=== PATIENT | female | born 1955 | race American Indian/Alaskan Native ===

== ENCOUNTER 2020-08-19 06:19 | Day surgery (SDC) | payer BC ==
[2020-08-19] MEDS ORDERED: ASPIRIN EC 325 MG TAB PO ONE ×2 (07:06→07:34)
[2020-08-19 07:23] LABS: Basophils % (Auto) 0.3 % (0.0-1.8); Eosinophils % (Auto) 0.1 % (0.0-4.3); Lymphocytes # (Auto) 1.3 K/mm3 (1.2-5.4); Lymphocytes % (Auto) 11.9 % (13.4-35.0); Mean Corpuscular HGB Conc 37 % (30-34); Mean Corpuscular Volume 88 fl (79-97); Monocytes # (Auto) 0.4 K/mm3 (0.0-0.8); Platelet Count 271 K/mm3 (140-440); Red Blood Count 4.73 M/mm3 (3.65-5.03); Red Cell Distribution Width 13.6 % (13.2-15.2)
[2020-08-19] MEDS ORDERED: HEPARIN/NS 5000 UNIT/500ML 1,000 ML IR ONE (07:29)
[2020-08-19] MEDS ORDERED: VERAPAMIL 5 MG/2 ML INJ ONE (07:30)
[2020-08-19] MEDS ORDERED: HEPARIN 10,000 UNITS/10 ML VIAL ONE (07:30)
[2020-08-19] MEDS ORDERED: LIDOCAINE (2%) 20 MG/1 ML VIAL 20 ML MDV INFILTRATI ONE (07:30)
[2020-08-19] MEDS ORDERED: NITROGLYCERIN SYRINGE 3 ML ONE (07:30)
[2020-08-19 07:33] LABS: INR 0.98 (0.87-1.13)
[2020-08-19 07:40] LABS: Hematocrit 41.4 % (30.3-42.9); Hemoglobin 15.3 gm/dl (10.1-14.3)
[2020-08-19 08:04] LABS: Blood Urea Nitrogen 19 mg/dL (7-17); Hemolysis Index 3
[2020-08-19 08:06] LABS: BUN/Creatinine Ratio 27
[2020-08-19] MEDS ORDERED: MIDAZOLAM 2 MG/2 ML INJ ONE (08:14)
[2020-08-19] MEDS ORDERED: fentaNYL 100 MCG/2 ML INJ ONE (08:14)
[2020-08-19] MEDS: SODIUM CHLORIDE 0.9% 500 ML 500 ML IV SCH ×2 (08:18→08:39)
--- NOTE | 2020-08-19 09:16 | Cardiac Catherization Report ---
REFERRING PHYSICIAN: Dr. Lara. INDICATION FOR PROCEDURE: The patient is a pleasant 65-year-old -Spanish female with multiple risk factors, seen in the office having chest pain, shortness of breath, found to have abnormal stress test, referred for left heart catheterization. Risks, benefits, potential alternatives explained at length prior to obtaining informed consent. PROCEDURE IN DETAIL: The patient was brought to the labor custodian in a postoperative state, prepped and draped in sterile fashion. Crow's test in right hand was normal. A 2 mL of 2% lidocaine used to anesthetize the right wrist. A standard 6-Wolof hydrophilic sheath used to cannulate the right radial artery via modified Seldinger technique. All exchanges were performed to exchange a J-tip guidewire. JL3.5 catheter was used to engage the left main. No dampening noted. Cineangiography performed in all projections. Next, catheter exchanged for JR4 catheter was used to cross the aortic valve under fluoroscopic guidance. Left ventriculography performed in 30 UPTON and 30 KYRGYZ projections via hand injections, catheter flushed. Manual pullback performed with continuous pressure monitoring. Catheter was used to engage the right coronary. No dampening or ventricularization. Cineangiography performed in all projections. Next, catheter removed from the body of wire, sheath removed. Manual pressure used to achieve hemostasis. I directly supervised the administration of moderate sedation from 8:30 a.m. to 8:50 a.m. with fentanyl and Versed. INTERPRETATION: The patient remained in normal sinus rhythm throughout the procedure. Aortic pressure is 140/70, LV pressure is 140. LVEDP of 28 mmHg. Left ventriculography revealed normal systolic performance with estimated ejection fraction of 55-60%. No evidence of aortic stenosis. CORONARY ANATOMY: This is a right dominant system. Left main is short, bifurcates in left anterior descending and left circumflex. No disease in left main. Left circumflex, moderate sized vessel, no significant disease, KELLIE 3 flow. LAD is a moderate sized vessel, courses anterior intergroove, wraps around the apex, no significant disease. Right coronary is a moderate sized vessel, courses AV groove, distally bifurcates into posterior and posterolateral branches. No discrete stenosis noted. CONCLUSIONS: 1. No angiographic evidence of significant epicardial coronary disease in this right dominant system. 2. Normal left ventricular systolic performance, estimated ejection fraction of 55-60%. 3. No evidence of aortic stenosis. 4. Mildly elevated LVEDP may be consistent with diastolic dysfunction. PLAN: The patient is clinically stable. Follow up with Dr. Lara. We would consider being more aggressive with AV blockade and possibly adding low dose diuretic. We will leave this up to Dr. Lara. The patient is clinically stable. Standard right radial care. Results of procedure explained to the patient at length. All questions and concerns were addressed. JOB# [id number] SBM/NTS
--- NOTE | 2020-08-19 10:15 | Short Stay Summary ---
Short Stay Documentation Date of service: 08/19/20 - History H&P: obtained from office - Allergies and Medications Current Medications: Allergies No Known Allergies Allergy (Verified 08/19/20 07:06) Home Medications Medication Instructions Recorded Confirmed Last Taken Type Aspirin [Adult Aspirin] 81 mg PO DAILY 08/19/20 08/19/20 08/18/20 History Cetirizine HCl [Zyrtec 10mg tab] 10 mg PO DAILY 08/19/20 08/19/20 08/18/20 History Cyclobenzaprine [Flexeril] 10 mg PO TID PRN 08/19/20 08/19/20 08/18/20 History Diclofenac Sodium [Pennsaid 2% 2 pump TP BID 08/19/20 08/19/20 08/18/20 History Topical] Empagliflozin/Metformin HCl 1 each PO DAILY 08/19/20 08/19/20 08/18/20 History [Synjardy 12.5-1,000 mg Tablet] FLUoxetine [PROzac] 20 mg PO QDAY 08/19/20 08/19/20 08/18/20 History HYDROcodone/APAP 5-325 [[place] 1 each PO Q6HR PRN 08/19/20 08/19/20 08/18/20 History 5/325] Meloxicam [Mobic] 15 mg PO DAILY 08/19/20 08/19/20 08/18/20 History Olmesartan/Hydrochlorothiazide 1 each PO DAILY 08/19/20 08/19/20 08/18/20 History [Olmesartan-Hctz 40-25 mg Tab] Pravastatin [Pravachol] 40 mg PO QHS 08/19/20 08/19/20 08/18/20 History Sitagliptin Phosphate [Januvia] 100 mg PO DAILY 08/19/20 08/19/20 08/18/20 History amLODIPine [Norvasc] 10 mg PO DAILY 08/19/20 08/19/20 08/18/20 History Active Medications Sodium Chloride (Nacl 0.9% 500 Ml) 500 mls @ 50 mls/hr IV DIRECT ROME Stop: 08/19/20 17:59 Last Admin: 08/19/20 08:39 Dose: 50 mls/hr Documented by: - Brief post op/procedure progress note Date of procedure: 08/19/20 Pre-op diagnosis: abnormal stress test Post-op diagnosis: other (normal coronaries) Procedure: C - see dictated cath report Anesthesia: local Estimated blood loss: none Condition: stable - Disposition Condition at discharge: Good Disposition: [id number] TO HOME OR SELFCARE - Discharge Diagnoses (1) Normal coronary angiogram Status: Chronic Short Stay Discharge Plan Activity: advance as tolerated Diet: low fat, low cholesterol, low salt Wound: open to air, keep clean and dry, per your surgeon's advice Follow up with: BETO MCKINNEY MD [Primary Care Provider] - 7 Days BETTY GREWAL MD [Staff Physician] - 7 Days
[2020-08-19 11:34] VITALS: BP 163/82
== END 2020-08-19 12:30 | disposition home or self-care (01) ==
LOC: CATHLABREC 06:19
PROVIDERS: ATTEND Internal Medicine
DX: R07.89 Other chest pain (principal); R06.02 Shortness of breath; R94.39 Abnormal result of other cardiovascular function study; E78.00 Pure hypercholesterolemia, unspecified; I10 Essential (primary) hypertension; F41.9 Anxiety disorder, unspecified; Z98.890 Other specified postprocedural states; Z79.899 Other long term (current) drug therapy; Z79.82 Long term (current) use of aspirin; Z87.891 Personal history of nicotine dependence; Z90.710 Acquired absence of both cervix and uterus; Z87.440 Personal history of urinary (tract) infections
CPT/HCPCS: 36415; 80048; 85025; 85610; 93005; 93458; 99156; C1894; J1644; J2250; J3010; J7040; Q9967